=== PATIENT | male | born 1965 | race African-American/Black ===

== ENCOUNTER → 2019-11-01 | Outpatient (CLI) | payer OTHER | LOC: SJCVCIMAG 14:34 | DX: I51.7 Cardiomegaly (principal); E78.5 Hyperlipidemia, unspecified; Z72.0 Tobacco use ==

== ENCOUNTER → 2020-04-18 | Outpatient (CLI) | payer OTHER ==
[~2020-04-18] MED LIST: ALLOPURINOL 10100 M3 PO; SUPER THERAVIT1 EACH PO; TOPROL XL50 MG PO; ZYLOPRIM300 MG PO
== END ==
LOC: LAB 08:05
PROVIDERS: ATTEND Specialist
DX: Z01.812 Encounter for preprocedural laboratory examination (principal); Z20.828 Contact with and (suspected) exposure to other viral communicable diseases

== ENCOUNTER → 2020-04-21 | Outpatient (CLI) | payer OTHER ==
[~2020-04-21] VITALS: Ht 190.5 cm; Wt 127.0 kg
--- NOTE | 2020-04-22 14:53 | P ---
[facility] [place] [address] PROCEDURE REPORT Name: NICOLÁS AMBROSIO Room #: REG [facility] Isadora#: [id number] Admission: 04/21/20 Attend Phys: Ze Bethea Discharge: Date of : 61 Report #: [id number] THIS REPORT FOR: cc: Josue Hurt,Ze Villagran MD ~ CC: Ze Hurt MD DATE OF SERVICE: 04/21/2020 PROCEDURE PERFORMED: Colonoscopy with biopsies. HISTORY OF PRESENT ILLNESS: The patient is a 54-year-old male with a history of colon polyps, here for routine followup. He denies any symptoms other than the small amount of bright red blood per rectum. No family history of colon cancer. DESCRIPTION OF PROCEDURE: The risks and benefits of the procedure were explained to the patient, those risks including but not limited to bleeding, perforation and the risk of sedation. He understood these risks and gave informed consent. Sedation was given using propofol per anesthesia. Next, a digital rectal exam was initially performed, which was normal. Next, using a standard Olympus colonoscope, the scope was placed in the patient's anus and advanced under direct vision to the cecum. The overall prep was excellent. The cecum and ileocecal valve were normal in appearance. Ascending colon was normal. In the transverse colon, a 4 mm sessile polyp was noted and removed with cold forceps, otherwise normal. In the descending colon, a 3 mm sessile polyp also noted and removed with cold forceps. A few scattered diverticula were noted in the sigmoid colon, no evidence of inflammation. Also noted was another 3 mm sessile polyp removed with cold forceps. The rectal mucosa was normal. On retroflexion, small nonbleeding internal hemorrhoids were noted. The scope was then withdrawn and the procedure terminated. The patient tolerated the procedure well. IMPRESSION: 1. Three small colonic polyps. 2. Sigmoid diverticulosis. 3. Small internal hemorrhoids. 4. Otherwise, normal colonoscopy. RECOMMENDATIONS: 1. Await biopsy results. 2. High-fiber diet. 3. Analpram on a p.r.n. basis. 4. If polyps are hyperplastic, repeat in 10 years; if adenomatous polyps, [address] [address] PROCEDURE REPORT Name: NICOLÁS AMBROSIO Room #: REG EMERALD Muir#: [id number] Admission: 04/21/20 Attend Phys: Ze Bethea Discharge: Date of : 61 Report #: [id number] repeat in 5 years. Thank you for allowing me to participate in his care. <ELECTRONICALLY SIGNED> By: Ze Yuan MD 04/22/20 [id number] 1319 Ze Yuan MD /nt
--- NOTE | 2020-04-24 17:06 | PATH ---
[facility] [address] [address] PATHOLOGY RPT PROCEDURE Name: NICOLÁS AMBROSIO Room #: REG TRISTONGianni Muir#: [id number] Admission: 04/21/20 Date of : 61 Discharge: Report #: [id number] Path Case #: [id number] [facility] Accession Number: [id number] . 01 Material submitted: . PART A: colon - POLYP AT TRANSVERSE COLON. Modifiers: transverse PART B: colon - POLYP AT DESCENDING COLON. Modifiers: descending PART C: sigmoid colon - POLYP AT SIGMOID COLON . 01 Clinical history: . HX OF POLYPS . 02 Diagnosis: A. Polyp, at transverse colon, endoscopic biopsy: - Minute hyperplastic polyp. - Negative for dysplasia. . B. Polyp, at descending colon, endoscopic biopsy: - Minute tubular adenoma. - Negative for high-grade dysplasia. . C. Polyp, at sigmoid colon, endoscopic biopsy: - Minute tubular adenoma. - Negative for high-grade dysplasia. . 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 02 Electronically signed: . Leta Lopez MD, Pathologist NPI- [id number] . 01 Gross description: . A. Received in formalin labeled "Nicolás Ambrosio, polyp at transverse colon" are two tian-brown soft tissue fragments measuring in aggregate 0.4 x 0.4 x 0.1 cm. The specimen is submitted entirely in A1. . B. Received in formalin labeled "Nicolás Ambrosio, polyp at descending colon" is a tian-brown soft tissue fragment measuring 0.3 x 0.2 x 0.1 cm. The specimen is submitted entirely in B1. . C. Received in formalin labeled "Nicolás Ambrosio, polyp at sigmoid colon" are two tian-brown soft tissue fragments measuring in aggregate 0.3 x 0.2 x 0.1 cm. The specimen is submitted entirely in C1. [place] [facility] 04/23/2020 0744 Local . [address] [place] [address] PATHOLOGY RPT PROCEDURE Name: NICOLÁS AMBROSIO Room #: REG CLGianni Jaimes.#: [id number] Admission: 04/21/20 Date of : 61 Discharge: Report #: [id number] Path Case #: [id number] Pathologist provided ICD-10: K63.5, D12.4, D12.5 . 02 CPT . 970308, [id number], 380533 Specimen Comment: A courtesy copy of this report has been sent to [phone], [phone] Specimen Comment: [id number] Specimen Comment: Report sent to / DR FINN Performed at: [address], [place] [id number] MD Akin Vivas MD Phone: [phone] Performed at: [address] [id number] MD Leta Lopez MD Phone: [phone]
== END | disposition home or self-care (01) ==
LOC: GI 08:07
PROVIDERS: ATTEND Specialist
DX: K92.1 Melena (principal); D12.4 Benign neoplasm of descending colon; D12.5 Benign neoplasm of sigmoid colon; K57.30 Diverticulosis of large intestine without perforation or abscess without bleeding; K64.8 Other hemorrhoids; I10 Essential (primary) hypertension; M10.9 Gout, unspecified; Z86.010 Personal history of colon polyps; Z87.891 Personal history of nicotine dependence; Z98.890 Other specified postprocedural states; Z79.899 Other long term (current) drug therapy; Z88.8 Allergy status to other drugs, medicaments and biological substances
CPT/HCPCS: 62110; 62900

== ENCOUNTER → 2021-04-06 | Outpatient (CLI) | payer OTHER ==
[2021-04-06 09:48] LABS: ABSOLUTE NEUTROPHILS 0.7 thou/uL (1.4-8.2); EOSINOPHILS 5.4 % (0.0-3.0); HEMOGLOBIN 14.9 gm/dL (14.0-18.0); LYMPHOCYTES 59.1 % (24.0-44.0); MCHC 33.1 g/dL (28.0-37.0); MCV 90.8 fL (80.0-100.0); MONOCYTES 11.1 % (1.0-8.0); PLATELET COUNT 177 thou/uL (150-400); POLYS 23.4 % (36.0-66.0); RBC 4.95 mil/uL (4.50-6.00); RDW 14.1 % (10.5-14.5); WBC 3.2 thou/uL (4.0-11.0)
[2021-04-06 10:05] LABS: ALBUMIN 4.1 g/dL (3.4-5.0); ANION GAP 7 mmol/L (7-16); BUN 17 mg/dL (7-18); CALCIUM 8.8 mg/dL (8.5-10.1); CHLORIDE 105 mmol/L (98-107); CHOLESTEROL 186 mg/dL (<200); CO2 29 mmol/L (21-32); CREATININE 1.2 mg/dL (0.7-1.3); GLUCOSE 86 mg/dL (74-106); HDL CHOLESTEROL 45 mg/dL (>40); LDL CHOLESTEROL 124 mg/dL (<100); POTASSIUM 4.1 mmol/L (3.5-5.1); SGOT 33 U/L (15-37); SGPT 44 U/L (30-65); SODIUM 141 mmol/L (136-145); TC:HDL 4.1 Ratio (Not establshd); TOTAL BILIRUBIN 0.7 mg/dL (0.2-1.0); TOTAL PROTEIN 7.3 g/dL (6.4-8.2); TRIGLYCERIDE 88 mg/dL (<150); URIC ACID* 6.1 mg/dL (3.5-7.2); VLDL 18 mg/dL (<40)
== END ==
LOC: LAB 07:53
PROVIDERS: ATTEND Neuromusculoskeletal Medicine & OMM
DX: I10 Essential (primary) hypertension (principal); E78.00 Pure hypercholesterolemia, unspecified; Z79.899 Other long term (current) drug therapy

== ENCOUNTER → 2021-06-29 | Outpatient (CLI) | payer OTHER ==
[2021-06-29 09:21] LABS: HEMATOCRIT 45.2 % (42.0-52.0); HEMOGLOBIN 15.2 gm/dL (14.0-18.0); MCH 30.8 pg (26.0-34.0); MCHC 33.6 g/dL (28.0-37.0); MCV 91.5 fL (80.0-100.0); RBC 4.94 mil/uL (4.50-6.00); RDW 13.5 % (10.5-14.5); WBC 3.5 thou/uL (4.0-11.0)
[2021-06-29 10:00] LABS: ALBUMIN 4.2 g/dL (3.4-5.0); ANION GAP 6 mmol/L (7-16); BUN 16 mg/dL (7-18); CALCIUM 9.2 mg/dL (8.5-10.1); CHLORIDE 104 mmol/L (98-107); CHOLESTEROL 173 mg/dL (<200); CO2 31 mmol/L (21-32); CREATININE 1.3 mg/dL (0.7-1.3); GLUCOSE 97 mg/dL (74-106); HDL CHOLESTEROL 51 mg/dL (>40); LDL CHOLESTEROL 109 mg/dL (<100); POTASSIUM 4.3 mmol/L (3.5-5.1); SGOT 30 U/L (15-37); SGPT 45 U/L (30-65); SODIUM 141 mmol/L (136-145); TC:HDL 3.4 Ratio (Not establshd); TOTAL BILIRUBIN 0.7 mg/dL (0.2-1.0); TOTAL PROTEIN 7.5 g/dL (6.4-8.2); TRIGLYCERIDE 69 mg/dL (<150); VLDL 14 mg/dL (<40)
== END ==
LOC: LAB 08:31
PROVIDERS: ATTEND Neuromusculoskeletal Medicine & OMM
DX: E78.00 Pure hypercholesterolemia, unspecified (principal); Z79.899 Other long term (current) drug therapy